=== PATIENT | male | born 1970 | race Caucasian/White ===

== ENCOUNTER 2023-04-05 09:15 | Emergency (ER) | payer OTHER, SELFPAY ==
[2023-04-05 09:20] VITALS: BP 132/82; PULSE 88; RESP 18; TEMP 36.8; O2SAT 97; BMI 39.5
--- NOTE | 2023-04-05 10:05 | ED.ABDPAIN1 ---
HPI - Abdominal Pain General Chief Complaint: Abdominal Pain Stated Complaint: ABDOMINAL PAIN Time Seen by Provider: 04/05/23 09:55 Source: patient Mode of arrival: walk-in History of Present Illness HPI narrative: this patient's here complaining of diffuse abdominal pain. It's been present for several days. He states that his urine is brighter yellow than normal. He says he said what he thought was a fever but he never took his temperature. He says he has chills and he feels warm and he has chills again. He is not on any antibiotics. He's not had severe cough but he does admit to some mild shortness of breath. He does have a history of HIV and has not been on his meds because he started using drugs again. Currently he is over at the rehab center and he has not used any drugs for three days. His last admission was several months ago at [facility] in [place] where he said his platelet count was low and he thinks they were giving him blood as well. He's never had colonoscopy or upper endoscopy. He has had his appendix out when he was much younger but no other surgery. Does not have any purulent sputum. He's not seen blood in his stool. He said he had soft watery stool for the last three days. He's not had any travel history. Related Data Allergies Allergy/AdvReac Type Severity Reaction Status Date / Time No Known Drug Allergies Allergy Verified 04/05/23 09:24 Exam Narrative Exam Narrative: awake alert very pleasant gentleman is not in extremis and is not a care acutely ill. His vital signs are stable and he is afebrile. HEENT does not show any scleral icterus pallor or evidence of anemia. Chest she had no respiratory distress cough or congestion all negative. Examination abdomen mildly bloated with slight increased bowel sounds increased percussion tympany. No discomfort at McBurney's point Mantilla sign is negative. No hepatomegaly. There is no appreciation of ascites. Extremities show no peripheral edema TVT phlebitis or tenderness. Constitutional Vital Signs, click to edit/add: Last Vital Signs Temp 98.2 F 04/05/23 09:20 Pulse 88 04/05/23 09:20 Resp 18 04/05/23 09:20 BP 132/82 04/05/23 09:20 Pulse Ox 97 04/05/23 09:20 Course Vital Signs Vital signs: Vital Signs Temperature 98.2 F 04/05/23 09:20 Pulse Rate 88 04/05/23 09:20 Respiratory Rate 18 04/05/23 09:20 Blood Pressure 132/82 04/05/23 09:20 Pulse Oximetry 97 04/05/23 09:20 Temperature 98.2 F 04/05/23 09:20 Pulse Rate 88 04/05/23 09:20 Respiratory Rate 18 04/05/23 09:20 Blood Pressure 132/82 04/05/23 09:20 Pulse Oximetry 97 04/05/23 09:20 MDM - Abdominal Pain MDM Narrative Medical decision making narrative: the patient was not able to give us a stool specimen so we'll give him a [place] of his emphasizing importance of following up with that so I can run a PCR on this. CT scan of the abdomen did not show any acute abnormalities it was done with IV contrast. His comprehensive metabolic profile shows marked elevation of his liver enzymes. Again he has a history of both hepatitis, however he said he was in remission to his knowledge. He also has HIV but doesn't have a previous records of his liver function testing. Fortunately he has physicians in the [facility] the been helping him over the years standing on top of these conditions. I do not believe he needs hospitalization at this time. He was given a copy of his CT scan on his laboratory testing and outpatient order for stool PCR testing. He appears stable for outpatient close follow-up and he understands the importance of this. He is not intoxicated and he is in a rehab program at this time indicated to me that he probably will go back to the [facility] to see his physician Discharge Plan Discharge Chief Complaint: Abdominal Pain Clinical Impression: Hepatitis Patient Disposition: Home, Self-Care Time of Disposition Decision: 11:50 Additional Instructions: take a copy of your lab for your physicians in [place]. Return stool specimen here for further testing Stand Alone Forms: Portal Instructions Referrals: HELEN SOLORZANO [Primary Care Provider] - 1 week
--- NOTE | 2023-04-05 10:07 | XR_ITS ---
The [address] [address] Patient Name: DOROTHY JONES MRN: [id number] date: 1970 Sex: M Assigned Patient Location: ER Current Patient Location: ER Accession/Order Number: [id number] Exam Date: 04/05/2023 10:32 Report Date: 04/05/2023 10:56 At the request of: AMADOR ASHRAF Procedure: XR chest 1V EXAM: XR chest 1V HISTORY: shortness of breath/HIV COMPARISON: None. TECHNIQUE: AP view of the chest. FINDINGS: The cardiomediastinal silhouette is normal. The lungs are clear. There is no pneumothorax. No pleural effusion is noted. The osseous structures are intact. XR/XR chest 1V IMPRESSION: No acute cardiopulmonary process. Electronically authenticated by: STEVEN HYLTON Date: 04/05/2023 10:56
--- NOTE | 2023-04-05 10:08 | CT_ITS ---
[address] [address] Patient Name: DOROTHY JONES MRN: [id number] date: 1970 Sex: M Assigned Patient Location: ER Current Patient Location: Accession/Order Number: [id number] Exam Date: 04/05/2023 10:32 Report Date: 04/05/2023 11:08 At the request of: AMADOR ASHRAF Procedure: CT abdomen pelvis w con EXAMINATION: CT abdomen pelvis w con HISTORY: abdominal pain/noncompliant HIV/hep C , shortness of breath COMPARISON: No relevant comparison available. TECHNIQUE: Axial, Coronal, and Sagittal images were obtained without and/or with IV contrast as indicated by examination type. Dose reduction techniques were achieved by using automated exposure control and/or adjustment of mA and/or kV according to patient size and/or use of iterative reconstruction technique. FINDINGS: LUNG BASES: No visible pulmonary or pleural disease. LIVER: No enlargement, atrophy, suspicious density, or significant focal lesion. BILIARY: No dilatation or calcification. PANCREAS: No lesion, fluid collection, or abnormal duct dilatation. SPLEEN: No enlargement or focal lesion. ADRENALS: No mass or enlargement. KIDNEYS: No mass, obstruction, or calcification. BOWEL/MESENTERY: No visible mass, obstruction, or bowel wall thickening. AORTA/VASCULAR: No aneurysm or dissection. RETROPERITONEUM: No mass or adenopathy. LYMPH NODES: No adenopathy. URINARY BLADDER: No visible focal wall thickening, lesion, or calculus. PELVIC ORGANS: No visible mass. Pelvic organs appropriate for patient age. ABDOMINAL WALL: No mass or hernia. BONES: No bony lesion or fracture. OTHER: Negative. CT/CT abdomen pelvis w con IMPRESSION: 1. No suspicious findings to account for patient's symptoms. Electronically authenticated by: LAMONT MARROQUIN Date: 04/05/2023 11:08
[2023-04-05] MEDS: 0.9 % SODIUM CHLORIDE 1,000 ML 999 ML IV (10:17)
[2023-04-05 10:20] LABS: Basophils Absolute Auto 0.1 10^3/uL (0.0-0.1); Eosinophils Absolute Auto 0.2 10^3/uL (0.0-0.7); Eosinophils Percent Auto 2.1 % (0.9-7.0); Hematocrit 49.1 % (42.0-54.0); Hemoglobin 15.9 g/dL (14.0-18.0); Immature Granulocytes Abs Auto 0.06 10^3/uL (0.00-0.03); Immature Granulocytes Pct Auto 0.9 % (0.0-0.5); Lymphocytes Absolute Auto 2.2 10^3/uL (1.2-3.8); Lymphocytes Percent Auto 31.1 % (20.5-60.0); Mean Corpuscular HGB Conc 32.4 g/dL (29.9-35.2); Mean Corpuscular Hemoglobin 30.8 pg (25.9-34.0); Mean Platelet Volume 9.5 fL (9.5-13.5); Monocytes Percent Auto 13.6 % (1.7-12.0); Neutrophils Absolute Auto 3.6 10^3/uL (1.4-6.5); Neutrophils Percent Auto 51.3 % (43.0-75.0); Platelet Count 170 10^3/uL (150-450); Red Blood Count 5.17 10^6/uL (4.70-6.10); Red Cell Distribution Width 12.9 % (11.0-15.0)
[2023-04-05 10:46] LABS: Albumin Globulin Ratio 0.5; Albumin Level 2.9 g/dL (3.4-5.0); Alkaline Phosphatase 120 U/L (46-116); BUN Creatinine Ratio 12.7; Bilirubin Total 7.7 mg/dL (0.2-1.0); Calcium 8.7 mg/dL (8.5-10.1); Carbon Dioxide 26.2 mmol/L (21.0-32.0); Chloride 101 mmol/L (98-107); Estimated GFR (African America >60 (>=60); Estimated GFR (Non-African Ame >60 (>=60); Globulin 5.3 g/dL; Glucose 154 mg/dL (74-106); Potassium 4.2 mmol/L (3.5-5.1); Sodium 135 mmol/L (136-145); Total Protein 8.2 g/dL (6.4-8.2)
[2023-04-05 10:50] LABS: Alanine Aminotransferase 2204 U/L (16-63); Aspartate Amino Transferase 2459 U/L (15-37)
[2023-04-05 11:01] LABS: INR 1.17; Prothrombin Time 12.3 sec (9.0-11.6)
== END 2023-04-05 12:05 | disposition home or self-care (01) ==
PROVIDERS: Emergency Provider Emergency Medicine Emergency Medical Services; PCP Family Medicine
DX: K75.9 Inflammatory liver disease, unspecified (principal); Z21 Asymptomatic human immunodeficiency virus [HIV] infection status; R10.9 Unspecified abdominal pain
CPT/HCPCS: 36415; 71045; 74177; 80053; 83605; 83690; 85025; 85610; 87493; 99285; G0328; Q9967

== ENCOUNTER 2023-09-14 17:02 | Emergency (ER) | payer OTHER, SELFPAY ==
[2023-09-14 17:08] VITALS: BP 111/93; PULSE 87; TEMP 36.9; O2SAT 95; BMI 34.8
--- NOTE | 2023-09-14 17:12 | XR_ITS ---
The [address] [address] Patient Name: DOROTHY JONES MRN: [id number] date: 1970 Sex: M Assigned Patient Location: ER Current Patient Location: ED.MAIN Accession/Order Number: [id number] Exam Date: 09/14/2023 17:38 Report Date: 09/14/2023 18:11 At the request of: SUMA KUNZ Procedure: XR elbow LT min 3V Exam: Radiographs: XR elbow LT min 3V Reason for exam: abscess r/o fb Comparison: None XR/XR elbow LT min 3V IMPRESSION: Soft tissue emphysema and swelling about the elbow could be due to infection, correlate clinically. No radiographically evident retained foreign bodies. Remainder of the left elbow radiographs is unremarkable. Electronically authenticated by: MARCIAL BROWN Date: 09/14/2023 18:11
--- NOTE | 2023-09-14 17:13 | ED_ITS ---
Documented by User: SANDRA Singh 09/14/23 18:05 HPI - Skin/Abscess/Foreign Bdy General Chief complaint: Extremity Problem, Nontraumatic Stated complaint: Abscess on arm Time Seen by Provider: 09/14/23 17:03 Source: patient Mode of arrival: walk-in Limitations: no limitations History of Present Illness HPI narrative: Patient is a 53-year-old male presents to the ER for evaluation of abscess to the left Medial distal humerus. Patient states he last used IV drugs approximately 8 days ago and noticed swelling 2 days after injecting in this area. Patient has been in the detox facility and has been taking doxycycline for the past 3 days without any improvement. He denies fevers or chills. He has a pertinent history for HIV and hepatitis. Patient has no other complaints other than localized swelling and tenderness. Only really hurts when you squeeze it. Patient has had a history of abscesses from IV drug abuse in the past. MD complaint: Reports abscess/boil Onset (ago): day(s) (6) Tetanus up to date: yes Location: Reports LUE Severity: moderate Quality: Reports aching Pain Consistency: Reports constant Relieving factors: Reports none Exacerbating factors: Reports none Context: Reports recent antibiotic Treatments prior to arrival: Reports other (oral antibiotics) Related Data Home Medications ?Medication ?Instructions ?Recorded ?Confirmed darunavir 800 mg-cob 150 1 tab PO Q24H 09/14/23 09/14/23 mg-emtricit 200 mg-tenofo alafen 10 mg tablet (Symtuza) dicyclomine 10 mg capsule mg 09/14/23 doxycycline hyclate 100 mg capsule 100 mg PO Q12H 09/14/23 09/14/23 hydroxyzine pamoate 25 mg capsule 25 mg PO TID-QID PRN itching 09/14/23 09/14/23 Allergies Allergy/AdvReac Type Severity Reaction Status Date / Time No Known Drug Allergies Allergy Verified 04/05/23 09:24 Review of Systems ROS Constitutional Denies: fever or chills Ears, nose, mouth, and throat Denies: throat pain or neck pain Cardiovascular Denies: chest pain, palpitations, edema or shortness of breath when lying down Respiratory Denies: shortness of breath or cough Gastrointestinal Denies: abdominal pain, nausea or vomiting Musculoskeletal Denies: back pain or neck pain Integumentary/Breast Reports: other (Abscess left anterior medial distal humerus) Neurological Denies: headache Psychiatric Denies: anxiety Exam Narrative Exam Narrative: Nurse's notes and vital signs reviewed. Patient is not hypoxic. General: The patient appears well and in no apparent distress. Patient is resting comfortably on cart. Skin: Warm, dry, no pallor noted. Well-formed 3 cm x 3 cm raised fluctuant abscess to the left forearm, there is minimal erythema, no obvious streaking or lymphangitis.This is just proximal to the antecubital fossa of the left elbow. Medial aspect Head: Normocephalic, atraumatic Eye: Normal conjunctiva Respiratory: Patient is in no distress Musculoskeletal: The left elbow shows no obvious deformity. focal abscess as noted above. There was no swelling noted to the elbow joint. no lymphangitis. The patient had full ROM . pain only on palpation. The patient had tenderness well localized to abscess The patient had no tenderness in the anatomical snuff box. The patient had no pain with axial loading of the thumb. Pulses are intact at brachial and radial 2+. There was no deficit at the elbow or shoulder. The patient has normal capillary refill to all distal digits. The patient has no evidence of cyanosis or mottling. The patient is able to flex and extend all digits without difficulty. Neurological: A&O x4, normal sensory, normal motor Psychiatric: Cooperative: Constitutional Vital Signs, click to edit/add: Last Vital Signs Temp 98.5 F 09/14/23 17:08 Pulse 87 09/14/23 17:08 Resp 18 09/14/23 17:08 BP 111/93 H 09/14/23 17:08 Pulse Ox 95 09/14/23 17:08 Course Vital Signs Vital signs: Vital Signs Temperature 98.5 F 09/14/23 17:08 Pulse Rate 87 09/14/23 17:08 Respiratory Rate 18 09/14/23 17:08 Blood Pressure 111/93 H 09/14/23 17:08 Pulse Oximetry 95 09/14/23 17:08 Temperature 98.5 F 09/14/23 17:08 Pulse Rate 87 09/14/23 17:08 Respiratory Rate 18 09/14/23 17:08 Blood Pressure 111/93 H 09/14/23 17:08 Pulse Oximetry 95 09/14/23 17:08 MDM - Skin/Abscess/Foreign Bdy MDM Narrative Medical decision making narrative: Patient presents from drug Rehab facility for possible incision and drainage of abscess. Abscess appears well-formed, fluctuant. Risks and benefits of incision and drainage discussed with potential bleeding. Patient verbally excepting. Recommend he continue on his doxycycline, wound culture will be pen ding. Patient will continue follow-up care with drug rehab facility for wound dressing changes . Patient admits he is currently treated for his HIV. Compliant with medications. And will continue with antibiotics per facility. discussed packing removal in 2 days. contact precautions with history of HIV. The patient is to followup with primary care physician/ House doctor at rehab facility in next 2 days or to return to the emergency department should any of the signs or symptoms worsen or new symptoms develop. Patient had questions answered. The patient agrees with the following Diagnosis and Treatment plan and the patient will be discharged back to rehab facility. Imaging Data xr elbow (L) : Attestation: I personally reviewed and interpreted this imaging study as follows: Radiologist's impression: ITS Impressions Elbow X-Ray 09/14/23 17:12 IMPRESSION: Soft tissue emphysema and swelling about the elbow could be due to infection, correlate clinically. No radiographically evident retained foreign bodies. Remainder of the left elbow radiographs is unremarkable. Electronically authenticated by: MARCIAL BROWN Date: 09/14/2023 18:11 Soft tissue swelling no evidence of retained metallic foreign body Discharge Plan Discharge Stand Alone Forms: Portal Instructions Chief Complaint: Extremity Problem, Nontraumatic Clinical Impression: Abscess of arm, left Patient Disposition: Home, Self-Care Time of Disposition Decision: 18:04 Condition: Good Prescriptions / Home Meds: No Action Symtuza [phone] mg tablet 1 tab PO Q24H dicyclomine 10 mg capsule doxycycline hyclate 100 mg capsule 100 mg PO Q12H hydroxyzine pamoate 25 mg capsule 25 mg PO TID-QID PRN (Reason: itching) Print Language: Taiwanese Instructions: Abscess Incision and Drainage (DC) Additional Instructions: Continue doxycycline, wound culture pending, packing removal in 2 days. Referrals: HELEN SOLORZANO [Primary Care Provider] - 1 week Discharge Date/Time: 09/14/23 18:15 Procedures ED Procedure Instructions Procedures Procedures: Incision and drainage: A single layer of iodine was used to prep the area. Drapes were placed to ensure isolation of the abscess and surrounding skin tissue. A regional field block was performed with 1% lidocaine with epi. Incision was made with an 11 blade to the apex of the abscess, significant amount purulent material was expressed. Cultures were obtained and sent to the lab. The abscess was explored, the use of hemostats were used to break up the septum and loculations within the abscess. Plain, 0.25 packing was placed within the abscess. A dry sterile dressing was placed. Wound culture pending Patient tolerated the procedure well and wound was dressed with gauze. Patient is to follow-up in the next 2 days with PCP or ED to have area evaluated. Documented by User: Jonas Trevizo MD 09/14/23 22:08 HPI - Skin/Abscess/Foreign Bdy General Chief complaint: Extremity Problem, Nontraumatic Stated complaint: Abscess on arm Time Seen by Provider: 09/14/23 17:03 Related Data Home Medications ?Medication ?Instructions ?Recorded ?Confirmed darunavir 800 mg-cob 150 1 tab PO Q24H 09/14/23 09/14/23 mg-emtricit 200 mg-tenofo alafen 10 mg tablet (Symtuza) dicyclomine 10 mg capsule mg 09/14/23 doxycycline hyclate 100 mg capsule 100 mg PO Q12H 09/14/23 09/14/23 hydroxyzine pamoate 25 mg capsule 25 mg PO TID-QID PRN itching 09/14/23 09/14/23 Allergies Allergy/AdvReac Type Severity Reaction Status Date / Time No Known Drug Allergies Allergy Verified 04/05/23 09:24 Exam Constitutional Vital Signs, click to edit/add: Last Vital Signs Temp 98.5 F 09/14/23 17:08 Pulse 87 09/14/23 17:08 Resp 18 09/14/23 17:08 BP 111/93 H 09/14/23 17:08 Pulse Ox 95 09/14/23 17:08 Course Vital Signs Vital signs: Vital Signs Temperature 98.5 F 09/14/23 17:08 Pulse Rate 87 09/14/23 17:08 Respiratory Rate 18 09/14/23 17:08 Blood Pressure 111/93 H 09/14/23 17:08 Pulse Oximetry 95 09/14/23 17:08 Temperature 98.5 F 09/14/23 17:08 Pulse Rate 87 09/14/23 17:08 Respiratory Rate 18 09/14/23 17:08 Blood Pressure 111/93 H 09/14/23 17:08 Pulse Oximetry 95 09/14/23 17:08 MDM - Skin/Abscess/Foreign Bdy MDM Narrative Medical decision making narrative: Patient presents from drug Rehab facility for possible incision and drainage of abscess. Abscess appears well-formed, fluctuant. Risks and benefits of incision and drainage discussed with potential bleeding. Patient verbally excepting. Recommend he continue on his doxycycline, wound culture will be pending. Patient will continue follow-up care with drug rehab facility for wound dressing changes . Patient admits he is currently treated for his HIV. Compliant with medications. And will continue with antibiotics per facility. discussed packing removal in 2 days. contact precautions with history of HIV. The patient is to followup with primary care physician/ House doctor at rehab facility in next 2 days or to return to the emergency department should any of the signs or symptoms worsen or new symptoms develop. Patient had questions answered. The patient agrees with the following Diagnosis and Treatment plan and the patient will be discharged back to rehab facility. I, Dr Trevizo, have reviewed the above progress note and course of action in the ER; agree with the above. I have personally seen and evaluated this patient, gone over history and physical, and discussed disposition and treatment plan with the patient. Imaging Data xr elbow (L) : Radiologist's impression: ITS Impressions Elbow X-Ray 09/14/23 17:12 IMPRESSION: Soft tissue emphysema and swelling about the elbow could be due to infection, correlate clinically. No radiographically evident retained foreign bodies. Remainder of the left elbow radiographs is unremarkable. Electronically authenticated by: MARCIAL BROWN Date: 09/14/2023 18:11 Discharge Plan Discharge Stand Alone Forms: Portal Instructions Chief Complaint: Extremity Problem, Nontraumatic Clinical Impression: Abscess of arm, left Patient Disposition: Home, Self-Care Time of Disposition Decision: 18:04 Condition: Good Prescriptions / Home Meds: No Action Symtuza [phone] mg tablet 1 tab PO Q24H dicyclomine 10 mg capsule doxycycline hyclate 100 mg capsule 100 mg PO Q12H hydroxyzine pamoate 25 mg capsule 25 mg PO TID-QID PRN (Reason: itching) Print Language: Taiwanese Instructions: Abscess Incision and Drainage (DC) Additional Instructions: Continue doxycycline, wound culture pending, packing removal in 2 days. Referrals: HELEN SOLORZANO [Primary Care Provider] - 1 week Discharge Date/Time: 09/14/23 18:15
== END 2023-09-14 18:15 | disposition home or self-care (01) ==
PROVIDERS: Emergency Provider Emergency Medicine; PCP Family Medicine
DX: L02.414 Cutaneous abscess of left upper limb (principal); K75.9 Inflammatory liver disease, unspecified; Z21 Asymptomatic human immunodeficiency virus [HIV] infection status
CPT/HCPCS: 10060; 73080; 87070; 87076; 99284